=== PATIENT | female | born 1970 ===

== ENCOUNTER 2024-12-01 08:27 | Outpatient (CLI) | payer SELFPAY ==
--- NOTE | ~2024-12-01 | MR_ITS ---
MRI of the right shoulder Technique: Axial proton-density fat-sat images, coronal proton density fat-sat and T2 fat-sat images, and sagittal T1-weighted and T2 fat-sat images were acquired. Clinical History: Pain Findings: There is moderate AC joint degenerative change. Coracoclavicular, coracoacromial, and corac ohumeral ligaments appear intact. Supraspinatus and infraspinatus tendons demonstrate moderate to severe tendinosis, without partial or full-thickness tear. There is moderate to advanced tendinosis of the subscapularis tendon. Tendon of long head of the biceps is intact, with intra-articular tendinosis. No definite labral tear seen. Inferior glenohumeral ligament is intact. No degenerative change or effusion of the glenohumeral join t. There is mild fluid distention of the subacromial/subdeltoid bursa. No muscle atrophy or edema. Impression: Diffuse rotator cuff tendinosis without tear. Mild subacromial/subdeltoid bursitis. Moderate AC joint degenerative change. Reviewed, dictated and finalized at [facility]. Impression: Diffuse rotator cuff tendinosis without tear. Mild subacromial/subdeltoid bursitis. Moderate AC joint degenerative change.
== END 2024-12-01 08:28 | disposition home or self-care (01) ==
DX: M75.80 Other shoulder lesions, unspecified shoulder (principal); M75.51 Bursitis of right shoulder; M19.011 Primary osteoarthritis, right shoulder
CPT/HCPCS: 73221